=== PATIENT | male | born 1965 | race Caucasian/White ===

== ENCOUNTER 2017-01-21 21:55 | Emergency (ER) | payer BC ==
[2017-01-21 22:39] VITALS: BP 137/77
--- NOTE | 2017-01-21 23:34 | EDM.PDOC ---
ED HPI GENERAL MEDICAL PROBLEM - General Chief Complaint: General Stated Complaint: dislocated finger Time Seen by Provider: 01/21/17 22:50 Source of Information: Reports: Patient History Limitations: Reports: No Limitations - Related Data Allergies Allergy/AdvReac Type Severity Reaction Status Date / Time amoxicillin Allergy Rash Verified 01/21/17 22:23 Home Meds: Home Meds . [No Known Home Meds] 01/21/17 [History] Past Medical History - Past Health History Medical/Surgical History: Denies Medical/Surgical History Social & Family History - Tobacco Use Smoking Status *Q: Never Smoker Second Hand Smoke Exposure: No - Recreational Drug Use Recreational Drug Use: No ED ROS GENERAL - Review of Systems Review Of Systems: ROS reveals no pertinent complaints other than HPI. ED EXAM, GENERAL - Physical Exam Exam: See Below Exam Limited By: No Limitations General Appearance: Alert, WD/WN, No Apparent Distress Eye Exam: Bilateral Eye: EOMI, Normal Inspection, PERRL Ears: Normal External Exam, Normal Canal, Hearing Grossly Normal, Normal TMs Ear Exam: Bilateral Ear: Auricle Normal, Canal Normal, TM normal Nose: Normal Inspection, Normal Mucosa, No Blood Throat/Mouth: Normal Inspection, Normal Lips, Normal Teeth, Normal Gums, Normal Oropharynx Head: Atraumatic, Normocephalic Neck: Normal Inspection, Supple, Non-Tender, Full Range of Motion. No: Lymphadenopathy (L), Lymphadenopathy (R), Tender Lateral, Tender Midline Respiratory/Chest: No Respiratory Distress, Lungs Clear, Normal Breath Sounds, No Accessory Muscle Use Cardiovascular: Normal Peripheral Pulses, Regular Rate, Rhythm, No Edema, No Gallop, No Murmur, No Rub Peripheral Pulses: 2+: Radial (L), Radial (R), Dorsalis Pedis (L), Dorsalis Pedis (R) GI/Abdominal: Normal Bowel Sounds, Soft, Non-Tender, No Organomegaly, No Distention Back Exam: Normal Inspection, Full Range of Motion. No: CVA Tenderness (L), CVA Tenderness (R), Paraspinal Tenderness, Vertebral Tenderness Extremities: No Pedal Edema, Normal Capillary Refill, Other (There is an obvious injury to the extensor tendon of the left middle finger. With flexion of the finger on multiple occasions the extensor tendon deviates laterally and he is unable to extend the finger and the finger has to be manually manipulated to get extensor tendon back in place. There is tenderness on palpation of the MCP joint as well. There is no visible or palpable defect of the joints or the bone. There is no palpable rupture or disruption of the extensor tendon. Radial pulse 2+. Capillary refill is < 2 seconds in finger. Sensation is intact to LT and PP. No pain on palpation of other fingers or hand. ) Neurological: Alert, Oriented, CN II-XII Intact, Normal Cognition, Normal Gait, Normal Reflexes, No Motor/Sensory Deficits Psychiatric: Normal Affect, Normal Mood Skin Exam: Warm, Dry, Intact, Normal Color, No Rash Lymphatic: No Adenopathy Course - Vital Signs Last Recorded V/S: Last Vital Signs Temp 37.1 C 01/21/17 22:40 Pulse 64 01/21/17 22:40 Resp 18 01/21/17 22:40 BP 137/77 01/21/17 22:40 Pulse Ox 100 01/21/17 22:40 - Orders/Labs/Meds Orders: Active Orders 24 hr Category Date Time Status Hand Comp Min 3V Lt [CR] Stat Exams 01/21/17 22:19 Taken Departure - Departure Time of Disposition: 23:21 Disposition: Home, Self-Care 01 Clinical Impression: Other sprain of left middle finger, initial encounter - Discharge Information Instructions: Finger Sprain Forms: ED Department Discharge Additional Instructions: 1. Discussed conservative and supportive care with patient. 2. Left middle finger splinted and placed in left wrist neutral splint over the top. 3. Wear splint and no lifting with left hand until cleared by hand surgeon. 4. OTC ibuprofen 400-800 mg every 6 hours as needed for pain and inflammation. 5. Elevate and ice in 20 minute cycles every 1-2 hours as able and as tolerated. 6. Instructed to call and schedule follow up with hand surgeon first thing on Tuesday for next available. - My Orders Last 24 Hours: My Active Orders 01/21/17 22:19 Hand Comp Min 3V Lt [CR] Stat - Assessment/Plan Last 24 Hours: My Active Orders 01/21/17 22:19 Hand Comp Min 3V Lt [CR] Stat Assessment:: Sprain of left middle finger extensor tendon Plan: 1. Discussed conservative and supportive care with patient. 2. Left middle finger splinted and placed in left wrist neutral splint over the top. 3. Wear splint and no lifting with left hand until cleared by hand surgeon. 4. OTC ibuprofen 400-800 mg every 6 hours as needed for pain and inflammation. 5. Elevate and ice in 20 minute cycles every 1-2 hours as able and as tolerated. 6. Instructed to call and schedule follow up with hand surgeon first thing on Tuesday morning for next available.
== END 2017-01-21 23:40 | disposition home or self-care (01) ==
LOC: LL.ED 21:55
DX: S63.693A Other sprain of left middle finger, initial encounter (principal); Z88.1 Allergy status to other antibiotic agents; X58.XXXA Exposure to other specified factors, initial encounter
CPT/HCPCS: 73130-LT; 99283